=== PATIENT | female | born 1950 | race Hispanic/Latino ===

== ENCOUNTER → 2020-09-10 | Outpatient (CLI) | payer OTHER ==
[~2020-09-10] MED LIST: REGADENOSON 0.4 MG/5 ML PF SYG IVP ONE; REGADENOSON 0.4 MG/5 ML PF SYG IVP SCH
== END | disposition home or self-care (01) ==
LOC: SHCH 08:32
PROVIDERS: ATTEND Internal Medicine Cardiovascular Disease
DX: I25.89 Other forms of chronic ischemic heart disease (principal); I10 Essential (primary) hypertension
CPT/HCPCS: 78452; 93017; 96374; A9500 ×2; J2785

== ENCOUNTER → 2022-04-30 | Outpatient (CLI) | payer OTHER | END | disposition home or self-care (01) | LOC: SHCH 14:33 | PROVIDERS: ATTEND Internal Medicine Cardiovascular Disease | DX: I87.2 Venous insufficiency (chronic) (peripheral) (principal) | CPT/HCPCS: 93970 ==

== ENCOUNTER → 2022-06-02 | Outpatient (CLI) | payer OTHER, MEDICARE ==
[2022-06-02 12:36] LABS: CREATININE 0.8 mg/dL (0.5-1.5); POTASSIUM 4.3 mmol/L (3.5-5.1)
== END | disposition home or self-care (01) ==
LOC: LAB 09:45
PROVIDERS: ATTEND Physician Assistant
DX: I25.119 Atherosclerotic heart disease of native coronary artery with unspecified angina pectoris (principal)
CPT/HCPCS: 36415; 80048

== ENCOUNTER → 2022-07-01 | Outpatient (CLI) | payer OTHER ==
[~2022-07-01] MED LIST changes: +IOHEXOL 350 MG/ML 100ML INFUS..BTL IV ONE; -REGADENOSON 0.4 MG/5 ML PF SYG IVP ONE; -REGADENOSON 0.4 MG/5 ML PF SYG IVP SCH
== END | disposition home or self-care (01) ==
LOC: RAH 06-30 08:59
PROVIDERS: ATTEND Internal Medicine Cardiovascular Disease
DX: I25.119 Atherosclerotic heart disease of native coronary artery with unspecified angina pectoris (principal); I49.3 Ventricular premature depolarization; I51.7 Cardiomegaly; M47.815 Spondylosis without myelopathy or radiculopathy, thoracolumbar region; K44.9 Diaphragmatic hernia without obstruction or gangrene
CPT/HCPCS: 75574; Q9967

== ENCOUNTER → 2024-01-16 | Outpatient (CLI) | payer OTHER, MEDICARE | END | disposition home or self-care (01) | LOC: SHCH 08:25 | PROVIDERS: ATTEND Internal Medicine Cardiovascular Disease | DX: I70.203 Unspecified atherosclerosis of native arteries of extremities, bilateral legs (principal) | CPT/HCPCS: 93925 ==

== ENCOUNTER → 2024-10-03 | Outpatient (CLI) | payer OTHER, MEDICARE ==
--- NOTE | 2024-10-03 10:23 | HMCIMG ---
US PELVIC NON-OB COMP HISTORY: Left lower abdominal pain COMPARISON: None TECHNIQUE: Transabdominal pelvic ultrasound study was performed. FINDINGS: Uterus and both ovaries have been removed. No adnexal mass is seen. No free fluid is seen in the cul-de-sac. IMPRESSION: 1. No adnexal mass is seen. Post hysterectomy.
--- NOTE | 2024-10-03 10:24 | HMCIMG ---
US ABDOMINAL COMPLETE HISTORY: Left lower abdominal pain COMPARISON: None TECHNIQUE: Multiple transverse and longitudinal ultrasound images of the abdomen were obtained. Images of left lower abdomen were obtained. FINDINGS: Evaluation of left lower abdomen is limited due to overlying bowel gas. Abdominal aorta and inferior vena cava are unremarkable. The visualized portion of the pancreas is within normal limits. Liver is echogenic consistent with liver parenchymal disease. Liver measured 12.2 cm. Gallbladder has been removed. Common duct measures 7 mm. Both kidneys are seen. Right kidney measures 10.6 x 3.8 x 3.9cm. Left kidney measures 9.4 x 3.5 x 3.6 cm. No hydronephrosis is seen of the both kidneys. The spleen is grossly unremarkable. There is accessory spleen measuring 1.3 cm. IMPRESSION: 1. Post cholecystectomy. No ductal dilatation is seen. 2. No hydronephrosis is seen.
== END | disposition home or self-care (01) ==
LOC: RAH 09:06
PROVIDERS: ATTEND Internal Medicine
DX: R10.32 Left lower quadrant pain (principal); Z90.49 Acquired absence of other specified parts of digestive tract; Z90.710 Acquired absence of both cervix and uterus
CPT/HCPCS: 76700; 76856

== ENCOUNTER 2025-05-08 07:00 | Day surgery (SDC) | payer OTHER, MEDICARE ==
[2025-05-04 14:11] LABS: IMMATURE GRANULOCYTE ABSOLUTE 0.02 K/uL (0-1); NUCLEATED RED BLOOD CELLS 0.0 % (0.0-0.19); PLATELET COUNT (AUTO) 204 K/uL (130-400); RED BLOOD CELL COUNT(AUTO) 3.98 MIL/uL (4.00-5.50); RED CELL DISTRIBUTION WIDTH 13.9 % (11.0-15.5); WHITE BLOOD COUNT (AUTO) 7.6 K/uL (4.8-10.8)
--- NOTE | 2025-05-04 14:16 | EKG ---
[facility] Test Date: 2025-05-04 Test Time: 14:00:21 Pat Name: YUMIKO CHAVEZ Department: [facility] Room: Gender: F Magnetic Locater: [id number] : 1950 Requested By: LESLY MUSTAFA Order Number: [id number] Reading MD: Krupa Gaffney Measurements Intervals [place] Rate: 53 P: 46 FL: 140 QRS: 22 QRSD: 85 T: 40 QT: 436 QTc: 408 Interpretive Statements Sinus rhythm No previous ECG available for comparison Electronically Signed On 05-05-2025 08:26:01 CDT by Krupa Gaffney Please click the below link to view image of tracing.
[2025-05-04 14:20] LABS: CREATININE 1.0 mg/dL (0.5-1.0); GLOMERULAR FILTR. RATE CALC 58.0 mL/min (>90); GLUCOSE,RANDOM 77.0 mg/dL (70-105); SODIUM SERUM 138.0 mmol/L (136-145); UREA NITROGEN, BLOOD 20.0 mg/dL (7-18)
[2025-05-04 14:24] LABS: INR 0.97 (0.85-1.15)
[2025-05-04 14:54] VITALS: BP 132/67; PULSE 54; RESP 17; TEMP 97.5
--- NOTE | 2025-05-04 17:54 | HMCIMG ---
EXAM: CR Chest, 1 View. CLINICAL HISTORY: PREOP COMPARISON: None provided. FINDINGS: LUNGS: There is no mass, infiltrate, or acute pulmonary abnormality. PLEURAL SPACES: No evidence of pleural effusion or pneumothorax. MEDIASTINUM: Cardiac size and mediastinal contours within normal limits. BONES: No aggressive appearing osseous lesion seen. IMPRESSION: No acute cardiopulmonary pathology is evident. /[place]
[~2025-05-08] VITALS: Ht 147.3 cm; Wt 80.6 kg
[2025-05-08] VITALS (10 sets, daily range): BP systolic 113–190; BP diastolic 55–77; PULSE 48–64; RESP 14–15; TEMP 97.2–97.4
[~2025-05-08 07:00] MED LIST changes: +ALEN35TA53 PO; +AMLO-257 PO; +ASPI-1005 PO; +ATOR40TA69 PO; +CHOL100046 PO; +CLOP75TA32 PO; +FLUT15.845 NS; -IOHEXOL 350 MG/ML 100ML INFUS..BTL IV ONE; +ISOS30TA92 PO; +METO-408 PO; +PANT20TA18 PO
[2025-05-08] MEDS ORDERED: LIDOCAINE HCL 400MG/20ML VIAL ONE (10:16)
[2025-05-08] MEDS ORDERED: IOHEXOL 350 MG/ML 100ML INFUS..BTL IV ONE (10:17)
[2025-05-08] MEDS ORDERED: HEParin-NS 1,000 UNIT/500 ML 1,000 ML IV ONE (10:17)
[2025-05-08] MEDS ORDERED: NITROGLYCERIN 50MG VIAL ONE (10:18)
[2025-05-08] MEDS ORDERED: MIDAZOLAM HCL 1 MG/ML 2ML VIAL ONE (10:36)
--- NOTE | 2025-05-08 11:13 | PRN ---
Left Heart Cath-[facility] PROCEDURE: 1. Right common femoral arterial sheath placement. 2. Selective coronary angiogram. 3. Left heart catheterization. 4. Left ventriculogram. 5. Perclose device for closure arteriotomy site INDICATIONS: [] Abnormal coronary CT angiogram for LAD stenosis DESCRIPTION OF PROCEDURE: The patient was brought to the catheterization suite and prepped and draped in sterile fashion. An IV was started, if not already in place and both groins were exposed for arterial access. 1% lidocaine was used for local anesthesia and then a micropuncture kit was used to gain access and once free-flowing blood was seen, modified Seldinger technique was utilized to place a 6 [place] sheath into the right common femoral artery. Next, preformed JL4 and JR4 Catheters were then used to selectively engage the [place] coronary vessels and multiple hand contrast injections were performed in different views to define the coronary anatomy. Next, a six [place] angled pigtail catheter was used to cross the aortic valve. Pressure measurements were obtained in the left ventriculogram was in the 30 ARELLANO position. Next, pullback method was performed. At the end of the case, sheath was pulled. Perclose device was used for closure of arteriotomy site after a sheathogram was demonstrating good access site. No complications occurred. FINDINGS: [] The left main artery bifurcates in the LAD and left circumflex artery and is free of any significant disease. The left anterior descending artery in its proximal has mild calcium noted with no significant stenoses seen. The distal vessel is slightly tortuous. Diagonal branch one is moderately calcified with a 50% stenosis in the ostial proximal segment. The left circumflex artery is a nondominant system with calcium noted in its proximal segment with no stenosis present. Obtuse marginal branch system is free of any significant disease. The right coronary artery is a dominant system with some calcium noted in its proximal segment. There is a mid distal lesion of approximately 20-30%. The ongoing PDA and RPL are free of any significant stenosis. The ejection fraction was noted to be greater than 65% on hand injection. LVEDP was slightly elevated at 16 mm of mercury. There was a 29 point gradient on pullback across the aortic valve. RECOMMENDATIONS: No driving 24 hours No heavy lifting 5 lb or greater for three days Follow up with Dr. Lal in 2-4 weeks with results of study and consider echocardiography one has not been performed in the last 6-12 months. LESLY RHODES MD May 08, 2025 11:13
[2025-05-08] MEDS ORDERED: GLUCAGON 1MG KIT 1 MG ML IM PRN (11:30)
[2025-05-08] MEDS ORDERED: 0.9%NACL 1000ML 1,000 ML IV SCH (11:30)
[2025-05-08] MEDS ORDERED: DEXTROSE 50%-WATER 50 ML DISP.SYRIN IV PRN (11:30)
== END 2025-05-08 15:06 | disposition home or self-care (01) ==
LOC: DAH 07:00
PROVIDERS: ATTEND Internal Medicine Cardiovascular Disease
DX: R93.1 Abnormal findings on diagnostic imaging of heart and coronary circulation (principal); I25.10 Atherosclerotic heart disease of native coronary artery without angina pectoris; R94.39 Abnormal result of other cardiovascular function study; I10 Essential (primary) hypertension; R07.9 Chest pain, unspecified; E78.00 Pure hypercholesterolemia, unspecified; Z86.73 Personal history of transient ischemic attack (TIA), and cerebral infarction without residual deficits; Z90.49 Acquired absence of other specified parts of digestive tract; Z79.82 Long term (current) use of aspirin; Z79.899 Other long term (current) drug therapy
CPT/HCPCS: 80048; 85025; 85610; 85730; 36415; 71045; 93005; 93458; 99156; 99157; C1894 ×2; C1760; J3010; J3490 ×2; J2250; J1644; Q9967; A4215; A4222; A4221; A4663; A4216; A4606; Q9965; A4223 ×2; 96360; 96361

== ENCOUNTER → 2025-07-31 | Outpatient (CLI) | payer OTHER, MEDICARE ==
--- NOTE | 2025-07-31 18:19 | HMCIMG ---
EXAM: MR LT knee WITHOUT CONTRAST CLINICAL HISTORY: 75-year-old female with pain in the left knee. TECHNIQUE: Multiplanar multisequence magnetic resonance images were obtained WITHOUT contrast. CONTRAST: None COMPARISON: None FINDINGS: JOINTS: Moderate joint effusion. Motion artifact limits evaluation. BONE: No acute fracture or focal osseous lesion. SOFT TISSUES: Grade 2 sprain medial collateral ligament. Grade 1 sprain lateral collateral ligament. Motion artifact limits evaluation. IMPRESSION: 1. Grade 2 sprain of the medial collateral ligament and grade 1 sprain of the lateral collateral ligament. 2. Moderate joint effusion. 3. Motion artifact limits evaluation. /[place]
== END | disposition home or self-care (01) ==
LOC: RAH 15:07
PROVIDERS: ATTEND Internal Medicine
DX: S83.412A Sprain of medial collateral ligament of left knee, initial encounter (principal); M25.462 Effusion, left knee; M25.562 Pain in left knee; X58.XXXA Exposure to other specified factors, initial encounter; Y93.9 Activity, unspecified; Y92.89 Other specified places as the place of occurrence of the external cause; Y99.8 Other external cause status
CPT/HCPCS: 73721